=== PATIENT | female | born 1980 | race Caucasian/White ===

== ENCOUNTER → 2017-01-26 | Outpatient (CLI) | payer OTHER ==
[~2017-01-26] MED LIST: ALBU0.08 INH; AMX500 PO; AYR SALINE NAE; BND25X PO; LEVO200T28 PO; VICKS INH
== END | disposition home or self-care (01) ==
LOC: C.PAPS 10:16
PROVIDERS: ATTEND Obstetrics & Gynecology
DX: R87.610 Atypical squamous cells of undetermined significance on cytologic smear of cervix (ASC-US) (principal)

== ENCOUNTER → 2018-01-04 | Outpatient (CLI) | payer OTHER ==
[2018-01-04 18:31] LABS: BLOOD UREA NITROGEN 14 mg/dl (7-18); CALCIUM 9.1 mg/dl (8.5-10.1); CARBON DIOXIDE 29 mmol/L (21-32); CREATININE 0.86 mg/dl (0.60-1.20); GLUCOSE 92 mg/dl (70-99); POTASSIUM 4.2 mmol/L (3.5-5.1); SODIUM 137 mmol/L (136-145)
== END | disposition home or self-care (01) ==
LOC: C.LABPVFM 14:03
PROVIDERS: ATTEND Nurse Practitioner
DX: J45.909 Unspecified asthma, uncomplicated (principal); E03.9 Hypothyroidism, unspecified

== ENCOUNTER 2020-04-30 15:12 | Observation (INO) ==
[2020-04-30] MEDS ORDERED: ONDANSETRON INJ 2 MG/ML 2 ML VIAL IV STA (16:06)
--- NOTE | 2020-04-30 16:18 | Emergency Department Note ---
History of Present Illness General Chief complaint: Abdominal Pain Stated complaint: ABD PAIN, NAUSEA Time Seen by Provider: 04/30/20 15:48 History of Present Illness Maximum Pain Intensity: 5 Patient is a 40-year-old female with past medical history significant for hypothyroidism and asthma who presents to the emergency department accompanied by her mother for evaluation of mid abdominal pain with associated nausea and anorexia x5 days. Her symptoms started last . She noted discomfort and nausea. Pain is in her mid abdomen, just above her umbilicus and does not radiate. She reports feeling very nauseous, had dry heaves once, but did not truly vomit. She denies any diarrhea, bowel movements have been normal for her, but decreased secondary to the lack of oral intake. She denies any urinary symptoms. No vaginal discharge. No fever or chills. She rates her discomfort a 5/10 currently. She has not tried any medications for her symptoms, but did try sipping on monique edson and following a brat diet. She denies any sick contacts at home, no unusual food or water consumption, recent foreign or out of state travel. Patient was treated with a short course of clindamycin for a dog bite 2 months ago. She also underwent an elective in December of this yea r, which was complicated by retained products of conception which required a second D&C. She does report that she has had normal menstrual cycles since, she states her last period was 1 week ago. She denies a history of abdominal surgeries. Home Medications Home Medications Medication Instructions Recorded Confirmed Type albuterol sulfate 2 puff INHALATION Q4 PRN 01/27/20 04/30/20 History albuterol sulfate 2.5 mg INHALATION DAILY 01/27/20 04/30/20 History levothyroxine 88 mcg tablet 88 mcg PO QAM #90 tab 02/23/20 04/30/20 Rx acetaminophen [Tylenol Extra 500 mg PO Q6H PRN 04/30/20 04/30/20 History Strength] Allergies Allergy/AdvReac Type Severity Reaction Status Date / Time Bactrim Allergy Severe throat Unverified 11/04/10 16:42 swelling cephalexin Allergy Severe throat Verified 04/30/20 17:10 swelling doxycycline Allergy Severe Throat Verified 04/30/20 17:10 swelling epinephrine Allergy Severe throat Verified 04/30/20 17:10 swelling lidocaine Allergy Severe throat Verified 04/30/20 17:10 swelling morphine Allergy Severe Tachycardia Verified 04/30/20 17:10 moxifloxacin [From Avelox] Allergy Severe THROAT Verified 04/30/20 17:10 SWELLING Sulfa (Sulfonamide Allergy Severe throat Verified 04/30/20 17:10 Antibiotics) swelling sulfamethoxazole Allergy Severe throat Verified 04/30/20 17:10 swelling trimethoprim Allergy Severe throat Verified 04/30/20 17:10 swelling amoxicillin Allergy Mild Rash Verified 02/27/20 14:21 Cephalosporins Allergy Mild RASH Verified 02/27/20 14:21 Past Med/Surg History Medical History Asthma (Chronic) Fibroadenoma of right breast (Resolved) History of abnormal cervical Pap smear History of chlamydia infection Hypothyroidism (Chronic) Inconclusive mammogram Migraine with aura (Inactive) Surgical History Elective 12/2019. Now has retained products. H/O colposcopy with cervical biopsy 05/24/15 - benign H/O wisdom tooth extraction History of dilatation and curettage Family History Grandfather Myocardial infarction Calcium kidney stone Cancer Aunt Diabetes Grandmother (Maternal) Hypertension Sister Ovarian cyst Aunt No problems noted. Other Alcohol abuse Bleeding disorder Heart disease Kidney disease Denies family history of Ovarian cancer Prostate cancer Breast cancer Lung cancer Colorectal cancer Social History Preferred Language: Sinhala Communication Ability: Effective Frame Straightener Required: No Beliefs That Will Affect Care: None marital status: marital status details: Phan Casillas [phone] Current Living Situation: Family and Significant Other Current Living Situation Comment: lives with daughter, 1 dog current occupational status: employed current occupation: Massage therapist Other Information That Helps Us Care for You: No Feels Safe at Home: Yes Safety Concerns: Feels Safe At This Time Smoking Status: Never smoker Second Hand Exposure: No ; Hx Alcohol Use: No Hx Substance Use: No caffeine: Yes (coffee) Dental Care, Regularly: Yes Seatbelt Use: always Sunscreen Use: Yes Review of Systems A total of 10 systems reviewed and were otherwise negative Physical Exam Vital Signs Vital Signs - 24 hr 04/30/20 15:15 04/30/20 17:04 04/30/20 17:05 Temperature 36.9 C Temperature Source Oral Pulse Rate 77 61 61 Pulse Rate from SpO2 Sensor 62 60 Respiratory Rate 18 12 12 Respiratory Effort / Characteristics Non-Labored Respiratory Depth Normal Blood Pressure 136/80 116/70 Blood Pressure Mean 98 79 Pulse Oximetry 100 100 100 Oxygen Delivery Method Room Air Sepsis Recent Fever Within 48 Hours No Sepsis Action Taken by Nursing No Action Required 04/30/20 17:30 04/30/20 18:38 04/30/20 18:49 Temperature Temperature Source Pulse Rate 80 78 72 Pulse Rate from SpO2 Sensor 79 80 72 Respiratory Rate 21 14 17 Respiratory Effort / Characteristics Respiratory Depth Blood Pressure 115/67 115/67 Blood Pressure Mean 83 83 Pulse Oximetry 100 100 100 Oxygen Delivery Method Sepsis Recent Fever Within 48 Hours Sepsis Action Taken by Nursing 04/30/20 19:00 04/30/20 19:30 04/30/20 20:01 Temperature Temperature Source Pulse Rate 79 92 H Pulse Rate from SpO2 Sensor 80 Respiratory Rate 18 17 18 Respiratory Effort / Characteristics Respiratory Depth Blood Pressure 119/71 119/71 Blood Pressure Mean 87 89 Pulse Oximetry 99 100 98 Oxygen Delivery Method Room Air Sepsis Recent Fever Within 48 Hours Sepsis Action Taken by Nursing CONSTITUTIONAL: Patient is an uncomfortable, otherwise nontoxic appearing 40-year-old female who is awake and alert and in no acute distress. EYES: Pupils equal, round, reactive to light and accommodation. EOMs intact without nystagmus. Sclera are anicteric. ENT: Tympanic membranes intact, with normal landmarks. External canals are clear. Oral and nasopharynx are clear. Mucous membranes are moist, no lesions, tongue and gums appear normal. CARDIOVASCULAR: Regular rate and rhythm, with normal S1 and S2, no murmur or gallop or rub is heard. Peripheral pulses easily palpable. RESPIRATORY: Breath sounds equal and clear to auscultation without wheezes, rales, or rhonchi heard. Full and equal chest expansion without accessory muscle use or retractions. ABDOMEN: Bowel sounds are present. Abdomen is soft, scaphoid, nondistended. She is mildly tender to percussion through the mid abdomen, is tender to palpation in the epigastric region, and the mid abdomen just above the umbilicus, and in the right lower quadrant. There is no guarding or rebound. INTEGUMENTARY: No lesions or rash, normal skin turgor. LYMPH: No lymphadenopathy. Course Course The patient was seen and assessed as above. Old records were reviewed. She presents to the emergency department for evaluation of mid abdominal pain with associated nausea and anorexia. She does have some tenderness in the right lower quadrant on exam. IV lock was initiated and laboratory studies were collected. She was medicated with Zofran 4 mg IV for nausea. She was ordered a total of 2 L of normal saline solution for hydration, but was only administered 1, as she was not tolerating the infusion through the IV site in her left hand well. CBC with differential, CMP, lipase, serum hCG, urinalysis and urine toxicology screen were ordered. CT scan of the abdomen pelvis with IV contrast was ordered. Laboratory studies noted a normal white count 6000, no left shift, no bandemia. Electrolytes are without significant abnormality requiring correction, BUN and creatinine 6 and 0.44. Transaminases are not elevated. Lipase is within normal limits. Serum hCG is negative. Urine toxicology screen is clear, urine microscopy notes 4+ ketones, trace blood, trace leukocyte esterase and greater than 30 WBCs. She does have casts and greater than 30 epithelial cells noted, 2+ bacteria. I suspect contamination, but urine culture is pending per protocol. The patient does not have any UTI symptoms. Patient was sent for CT scan of the abdomen and pelvis with IV contrast. She tolerated this well. CT scan is concerning for a borderline dilated fluid- filled appendix measuring 7 mm without evidence for significant periappendiceal inflammatory change, possibly indicating an early acute appendicitis. There was a right renal cyst noted. No evidence for bowel obstruction, no free air. No obvious gynecologic pathology. Consultation was placed with Dr. Lara with general surgery. He assessed the patient in the emergency department. At this point he plans to watch the patient in the hospital overnight, and decide whether surgery is necessary in the morning. Please refer to his surgical consultation/H&P for further information. Administered Medications Ioversol (Optiray 320 100ml) 94 ml IV ONCE PRN PRN Reason: Interaction Checking Stop: 05/04/20 18:33 Last Admin: 04/30/20 18:35 Dose: 94 ml Documented by: [id number] Discontinued Medications Sodium Chloride (Nss 1000ml) 1,000 mls @ 999 mls/hr IV .Q1H1M [facility] Stop: 04/30/20 18:07 Last Infusion: 04/30/20 18:26 Dose: 0 mls/hr Documented by: [id number] Admin: 04/30/20 16:57 Dose: 999 mls/hr Documented by: [id number] Ondansetron HCl (Zofran) 4 mg IV NOW STA Stop: 04/30/20 16:07 Last Admin: 04/30/20 16:58 Dose: 4 mg Documented by: [id number] Medical Decision Making Differential Diagnosis Differential diagnoses entertained included UTI, pyelonephritis, renal colic, appendicitis, ovarian cyst, ovarian torsion, , ectopic , PID, tubo-ovarian abscess, shingles, hernia, colitis/enteritis, among others. Medical Records Attestation: I reviewed the patient's medical records. Home Medications Current Medication List: was personally reviewed by me Laboratory Data Attestation: I reviewed the patient's lab results. Result diagrams: 04/30/20 17:08 04/30/20 17:08 Lab Results 04/30/20 04/30/20 04/30/20 Range/Units 17:08 17:08 17:08 WBC 6.05 (4.8-10.8) K/uL RBC 4.17 L (4.2-5.4) M/uL Hgb 13.0 (12.0-16.0) g/dL Hct 39.0 (37-47) % MCV 93.5 (80-100) fL MCH 31.2 (25-34) pg MCHC 33.3 (32-36) g/dL RDW Std Deviation 46.0 (36.4-46.3) fL RDW Coeff of Kevon 13.4 (11.5-14.5) % Plt Count 384 (130-400) K/uL MPV 9.1 (7.4-10.4) fL Immature Gran % (Auto) 0.2 % Neut % (Auto) 67.7 % Lymph % (Auto) 24.1 % Tripp % (Auto) 6.8 % Eos % (Auto) 0.7 % Baso % (Auto) 0.5 % Neut # (Auto) 4.10 (1.4-6.5) K/uL Lymph # (Auto) 1.46 (1.2-3.4) K/uL Tripp # (Auto) 0.41 (0.11-0.59) K/uL Eos # (Auto) 0.04 (0-0.5) K/uL Baso # (Auto) 0.03 (0-0.2) K/uL Immature Gran # (Auto) 0.01 (0.00-0.02) K/uL Sodium 140 (136-145) mmol/L Potassium 3.4 L (3.5-5.1) mmol/L Chloride 107 (98-107) mmol/L Carbon Dioxide 26 (21-32) mmol/L Anion Gap 7.0 (3-11) BUN 6 L (7-18) mg/dl Creatinine 0.44 L (0.6-1.2) mg/dl Est Cr Clr Drug Dosing 145.3 ml/min Est GFR ( Amer) 145.3 Est GFR (Non-Af Amer) 125.4 BUN/Creatinine Ratio 13.1 (10-20) Glucose 68 L (70-99) mg/dl Calcium 8.4 L (8.5-10.1) mg/dl Total Bilirubin 0.5 (0.2-1) mg/dl AST 6 L (15-37) U/L ALT 13 (12-78) U/L Alkaline Phosphatase 44 L (45-117) U/L Total Protein 6.5 (6.4-8.2) gm/dl Albumin 3.7 (3.4-5.0) gm/dl Globulin 2.8 (2.5-4.0) gm/dl Albumin/Globulin Ratio 1.3 (0.9-2) Lipase 56 L (73-393) U/L HCG, Qual Negative (Negative) Urine Color Urine Appearance (Clear) Urine pH (4.5-7.5) Ur Specific [place] (1.000-1.030) Urine Protein (Negative) Urine Glucose (UA) (Negative) Urine Ketones (Negative) Urine Blood (Negative) Urine Nitrite (Negative) Urine Bilirubin (Negative) Urine Urobilinogen (Negative) Ur Leukocyte Esterase (Negative) Urine WBC (Auto) (0-5) /hpf Urine RBC (Auto) (0-4) /hpf U Hyaline Cast (Auto) (0-5) /lpf U Epithel Cells (Auto) (0-5) /lpf Urine Bacteria (Auto) (Negative) Urine Opiates Screen (Neg) Ur Methadone, Qual (Neg) Urine Barbiturates (Neg) Ur Phencyclidine (PCP) (Neg) U Amphetamin/Meth Scrn (Neg) MDMA (Ecstasy) Screen (Neg) U Benzodiazepines Scrn (Neg) Ur Cocaine Metabolite (Neg) U Marijuana (THC) Screen (Neg) 04/30/20 04/30/20 Range/Units Unknown Unknown WBC (4.8-10.8) K/uL RBC (4.2-5.4) M/uL Hgb (12.0-16.0) g/dL Hct (37-47) % MCV (80-100) fL MCH (25-34) pg MCHC (32-36) g/dL RDW Std Deviation (36.4-46.3) fL RDW Coeff of Kevon (11.5-14.5) % Plt Count (130-400) K/uL MPV (7.4-10.4) fL Immature Gran % (Auto) % Neut % (Auto) % Lymph % (Auto) % Tripp % (Auto) % Eos % (Auto) % Baso % (Auto) % Neut # (Auto) (1.4-6.5) K/uL Lymph # (Auto) (1.2-3.4) K/uL Tripp # (Auto) (0.11-0.59) K/uL Eos # (Auto) (0-0.5) K/uL Baso # (Auto) (0-0.2) K/uL Immature Gran # (Auto) (0.00-0.02) K/uL Sodium (136-145) mmol/L Potassium (3.5-5.1) mmol/L Chloride (98-107) mmol/L Carbon Dioxide (21-32) mmol/L Anion Gap (3-11) BUN (7-18) mg/dl Creatinine (0.6-1.2) mg/dl Est Cr Clr Drug Dosing ml/min Est GFR ( Amer) Est GFR (Non-Af Amer) BUN/Creatinine Ratio (10-20) Glucose (70-99) mg/dl Calcium (8.5-10.1) mg/dl Total Bilirubin (0.2-1) mg/dl AST (15-37) U/L ALT (12-78) U/L Alkaline Phosphatase (45-117) U/L Total Protein (6.4-8.2) gm/dl Albumin (3.4-5.0) gm/dl Globulin (2.5-4.0) gm/dl Albumin/Globulin Ratio (0.9-2) Lipase (73-393) U/L HCG, Qual (Negative) Urine Color Yellow Urine Appearance Cloudy A (Clear) Urine pH 5.0 (4.5-7.5) Ur Specific [place] 1.029 (1.000-1.030) Urine Protein Trace H (Negative) Urine Glucose (UA) Negative (Negative) Urine Ketones 4+ H (Negative) Urine Blood Trace H (Negative) Urine Nitrite Negative (Negative) Urine Bilirubin Negative (Negative) Urine Urobilinogen Negative (Negative) Ur Leukocyte Esterase Trace H (Negative) Urine WBC (Auto) >30 H (0-5) /hpf Urine RBC (Auto) 5-10 H (0-4) /hpf U Hyaline Cast (Auto) 10-30 H (0-5) /lpf U Epithel Cells (Auto) >30 H (0-5) /lpf Urine Bacteria (Auto) 2+ H (Negative) Urine Opiates Screen Neg (Neg) Ur Methadone, Qual Neg (Neg) Urine Barbiturates Neg (Neg) Ur Phencyclidine (PCP) Neg (Neg) U Amphetamin/Meth Scrn Neg (Neg) MDMA (Ecstasy) Screen Neg (Neg) U Benzodiazepines Scrn Neg (Neg) Ur Cocaine Metabolite Neg (Neg) U Marijuana (THC) Screen Neg (Neg) Imaging Data Attestation: I personally reviewed and interpreted this imaging study as follows: Radiologist's Impression: CT abd pelvis IV con only CLINICAL HISTORY: MID ABD PAIN AND NAUSEA X 5 DAYS COMPARISON STUDY: None. TECHNIQUE: The patient was scanned in a dynamic helical fashion during intravenous administration of 94 cc of Optiray 320 A dose lowering technique was utilized adhering to the principles of ALARA. CT DOSE: 383.34 mGy.cm FINDINGS: Lower chest: The heart is normal in size and configuration, without pericardial effusion. The lung bases and pleural spaces are clear. Liver: The contrast-enhanced liver is normal in size, contour, and attenuation. There is no intrahepatic biliary ductal dilatation. The hepatic veins and portal veins are patent. Gallbladder: Unremarkable. Spleen: Normal in size and attenuation. Pancreas: Unremarkable. Adrenal glands: Unremarkable. Kidneys: There is a 14 mm right renal hypodensity statistically representing a cyst. Bowel: There are no transition zones indicate bowel obstruction. There is no evidence of acute diverticulitis. There is a borderline dilated fluid-filled appendix measuring 7 mm in diameter without evidence of significant periappendiceal inflammatory change. Clinical correlation in regards the patient's symptoms is advocated. Peritoneum: There is trace free pelvic fluid, likely physiologic. Vasculature: The abdominal aorta is normal in course and caliber. Adenopathy: None. Pelvic viscera: There are bilateral ovarian follicles present. Skeletal structures: No destructive osseous lesions are seen. IMPRESSION: 1. No evidence of bowel obstruction. No evidence of free air 2. 14 mm right renal hypodensity, statistically representing a cyst 3. Borderline dilated fluid-filled appendix measuring 7 mm without evidence of significant periappendiceal inflammatory change. Clinical correlation in regards to the patient's symptoms is advocated to exclude an early acute appendicitis Blood Pressure Blood Pressure Findings: Normal blood pressure Blood Pressure Disposition: did not require urgent referral MDM Narrative See ED Course. Impression & Plan Acute appendicitis, Right lower quadrant abdominal pain Discharge Plan Visit Data Chief Complaint: Abdominal Pain Stated Complaint: ABD PAIN, NAUSEA ED Provider: Alan Lopez ED Midlevel Provider: Ten Davis Discharge Problem: Acute appendicitis, Right lower quadrant abdominal pain Patient Disposition: Being Evaluated by Surgeon Discharge Instructions Interventions: ED Discharge Assessment Last Done: 04/30/20 20:15
[2020-04-30] MEDS: SODIUM CHLORIDE 0.9% 1000ML 1,000 ML IV SCH ×2 (16:57→21:22)
[2020-04-30 17:04] LABS: Appearance Urine Cloudy (Clear); Bacteria Urine Automated 2+ (Negative); Bilirubin Urine Negative (Negative); Blood Urine Trace (Negative); Color Urine Yellow; Epithelial Cell Urine Auto >30 /lpf (0-5); Glucose Urine UA Negative (Negative); Ketones Urine 4+ (Negative); Leukocyte Esterase Urine Trace (Negative); Nitrite Urine Negative (Negative); Protein Urine Trace (Negative); Specific Gravity Urine 1.029 (1.000-1.030); Urobilinogen Urine Negative (Negative); WBC Urine Automated >30 /hpf (0-5)
[2020-04-30 17:19] LABS: Amphetamines+Metham, Urine Neg (Neg); Barbiturates, Urine Neg (Neg); Benzodiazepine, Urine Neg (Neg); Cocaine, Urine Neg (Neg); MDMA (Ecstacy), Urine Neg (Neg); Methadone, Urine Neg (Neg); Opiate, Urine Neg (Neg); Phencyclidine, Urine Neg (Neg)
[2020-04-30 17:23] LABS: Basophils # (auto) 0.03 K/uL (0-0.2); Basophils % (auto) 0.5 %; Eosinophils # (auto) 0.04 K/uL (0-0.5); Eosinophils % (auto) 0.7 %; Immature Granulocytes # (auto) 0.01 K/uL (0.00-0.02); Immature Granulocytes % (auto) 0.2 %; Lymphocytes # (auto) 1.46 K/uL (1.2-3.4); Lymphocytes % (auto) 24.1 %; Mean Corpuscular Hemoglobin 31.2 pg (25-34); Mean Corpuscular Hgb Conc 33.3 g/dL (32-36); Mean Corpuscular Volume 93.5 fL (80-100); Mean Platelet Volume 9.1 fL (7.4-10.4); Monocytes # (auto) 0.41 K/uL (0.11-0.59); Monocytes % (auto) 6.8 %; Neutrophils % (auto) 67.7 %; Platelet Count 384 K/uL (130-400); RDW Coefficient of Variation 13.4 % (11.5-14.5); Red Blood Count 4.17 M/uL (4.2-5.4); White Blood Count 6.05 K/uL (4.8-10.8)
[2020-04-30 17:36] LABS: Albumin Level 3.7 gm/dl (3.4-5.0); BUN Creatinine Ratio 13.1 (10-20); Calcium 8.4 mg/dl (8.5-10.1); Creatinine Clr Calc Pharmacy 145.3 ml/min; Est GFR (African American) 145.3; Est GFR (Non-African American) 125.4; Potassium 3.4 mmol/L (3.5-5.1)
[2020-04-30 17:39] LABS: Albumin Globulin Ratio 1.3 (0.9-2); Bilirubin,Total 0.5 mg/dl (0.2-1); Globulin 2.8 gm/dl (2.5-4.0); Total Protein 6.5 gm/dl (6.4-8.2)
[2020-04-30 17:41] LABS: Pregnancy Test, Serum Negative (Negative)
[2020-04-30] MEDS ORDERED: IOVERSOL 100ml IV PRN (18:34)
--- NOTE | 2020-04-30 18:48 | CT Scan Report ---
CT abd pelvis IV con only CLINICAL HISTORY: MID ABD PAIN AND NAUSEA X 5 DAYS COMPARISON STUDY: None. TECHNIQUE: The patient was scanned in a dynamic helical fashion during intravenous administration of 94 cc of Optiray 320 A dose lowering technique was utilized adhering to the principles of ALARA. CT DOSE: 383.34 mGy.cm FINDINGS: Lower chest: The heart is normal in size and configuration, without pericardial effusion. The lung ba ses and pleural spaces are clear. Liver: The contrast-enhanced liver is normal in size, contour, and attenuation. There is no intrahepa tic biliary ductal dilatation. The hepatic veins and portal veins are patent. Gallbladder: Unremarkable. Spleen: Normal in size and attenuation. Pancreas: Unremarkable. Adrenal glands: Unremarkable. Kidneys: There is a 14 mm right renal hypodensity statistically representing a cyst. Bowel: There are no transition zones indicate bowel obstruction. There is no evidence of acute divert iculitis. There is a borderline dilated fluid-filled appendix measuring 7 mm in diameter without evid ence of significant periappendiceal inflammatory change. Clinical correlation in regards the patient' s symptoms is advocated. Peritoneum: There is trace free pelvic fluid, likely physiologic. Vasculature: The abdominal aorta is normal in course and caliber. Adenopathy: None. Pelvic viscera: There are bilateral ovarian follicles present. Skeletal structures: No destructive osseous lesions are seen. IMPRESSION: 1. No evidence of bowel obstruction. No evidence of free air 2. 14 mm right renal hypodensity, statistically representing a cyst 3. Borderline dilated fluid-filled appendix measuring 7 mm without evidence of significant periappend iceal inflammatory change. Clinical correlation in regards to the patient's symptoms is advocated to exclude an early acute appendicitis ACT 112: Negative or not required by law. Electronically signed by: Ja Horton M.D. 04/30/2020 6:47 PM
[2020-04-30] MEDS ORDERED: ONDANSETRON INJ 2 MG/ML 2 ML VIAL IV PRN (19:40)
--- NOTE | 2020-04-30 19:50 | Surgery Consultation ---
Date of Consultation April 30, 2020 Assessment & Plan (1) Acute abdominal pain: pt is a 40 year-old female who presents to Er with 5 days history acute abdominal pain, IMP: acute abdominal pain, CT scan 7 mm appendix , no inflammation around appendix, not like acute appendicitis, but could not R/O early acute appendicitis, I recommend to admit to hospital, conservative treatment first, NPO, IV fluid, antibiotic, control pain, repeat labs in am, pt and her mom agree with the plan, will F/U Present on Admission?: Yes History of Present Illness History of Present Illness History of Present Illness General Chief complaint: Abdominal Pain Stated complaint: ABD PAIN, NAUSEA Time Seen by Provider: 04/30/20 15:48 History of Present Illness Maximum Pain Intensity: 5 Patient is a 40-year-old female with past medical history significant for hypothyroidism and asthma who presents to the emergency department accompanied by her mother for evaluation of mid abdominal pain with associated nausea and anorexia x5 days. Her symptoms started last . She noted discomfort and nausea. Pain is in her mid abdomen, just above her umbilicus and does not radiate. She reports feeling very nauseous, had dry heaves once, but did not truly vomit. She denies any diarrhea, bowel movements have been normal for her, but decreased secondary to the lack of oral intake. She denies any urinary symptoms. No vaginal discharge. No fever or chills. She rates her discomfort a 5/10 currently. She has not tried any medications for her symptoms, but did try sipping on monique edson and following a brat diet. She denies any sick contacts at home, no unusual food or water consumption, recent foreign or out of state travel. Patient was treated with a short course of clindamycin for a dog bite 2 months ago. She also underwent an elective in December of this year, which was complicated by retained products of conception which required a second D&C. She does report that she has had normal menstrual cycles since, she states her last period was 1 week ago. She denies a history of abdominal surgeries. I ( Dexter menjivar MD ) got a call for consult possible acute appendicitis, I reviewed pt's H/P, labs, CT scan with pt, and her Mom, pt has been rakesh- umbilical pain for 5 days, with nausea, no vomiting, pt denies diarrhea, last BM this morning. no fever, Home Medications Home Medications Medication Instructions Recorded Confirmed Type albuterol sulfate 2 puff INHALATION Q4 PRN 01/27/20 04/30/20 History albuterol sulfate 2.5 mg INHALATION DAILY 01/27/20 04/30/20 History levothyroxine 88 mcg tablet 88 mcg PO QAM #90 tab 02/23/20 04/30/20 Rx acetaminophen [Tylenol Extra 500 mg PO Q6H PRN 04/30/20 04/30/20 History Strength] Allergies Allergy/AdvReac Type Severity Reaction Status Date / Time Bactrim Allergy Severe throat Unverified 11/04/10 16:42 swelling cephalexin Allergy Severe throat Verified 04/30/20 17:10 swelling doxycycline Allergy Severe Throat Verified 04/30/20 17:10 swelling epinephrine Allergy Severe throat Verified 04/30/20 17:10 swelling lidocaine Allergy Severe throat Verified 04/30/20 17:10 swelling morphine Allergy Severe Tachycardia Verified 04/30/20 17:10 moxifloxacin [From Avelox] Allergy Severe THROAT Verified 04/30/20 17:10 SWELLING Sulfa (Sulfonamide Allergy Severe throat Verified 04/30/20 17:10 Antibiotics) swelling sulfamethoxazole Allergy Severe throat Verified 04/30/20 17:10 swelling trimethoprim Allergy Severe throat Verified 04/30/20 17:10 swelling amoxicillin Allergy Mild Rash Verified 02/27/20 14:21 Cephalosporins Allergy Mild RASH Verified 02/27/20 14:21 Past Med/Surg History Medical History Asthma (Chronic) Fibroadenoma of right breast (Resolved) History of abnormal cervical Pap smear History of chlamydia infection Hypothyroidism (Chronic) Inconclusive mammogram Migraine with aura (Inactive) Surgical History Elective 12/2019. Now has retained products. H/O colposcopy with cervical biopsy 05/24/15 - benign H/O wisdom tooth extraction History of dilatation and curettage Family History Grandfather Myocardial infarction Calcium kidney stone Cancer Aunt Diabetes Grandmother (Maternal) Hypertension Sister Ovarian cyst Aunt No problems noted. 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 Beliefs That Will Affect Care: None marital status: marital status details: Phan Casillas (35) [phone] Current Living Situation: Family and Significant Other Current Living Situation Comment: lives with daughter, 1 dog current occupational status: employed current occupation: Massage therapist Feels Safe at Home: Yes Smoking Status: Never smoker Second Hand Exposure: No ; Hx Alcohol Use: No Hx Substance Use: No caffeine: Yes (coffee) Dental Care, Regularly: Yes Seatbelt Use: always Sunscreen Use: Yes Review of Systems A total of 10 systems reviewed and were otherwise negative Allergies Allergy/AdvReac Type Severity Reaction Status Date / Time Bactrim Allergy Severe throat Unverified 11/04/10 16:42 swelling cephalexin Allergy Severe throat Verified 04/30/20 17:10 swelling doxycycline Allergy Severe Throat Verified 04/30/20 17:10 swelling epinephrine Allergy Severe throat Verified 04/30/20 17:10 swelling lidocaine Allergy Severe throat Verified 04/30/20 17:10 swelling morphine Allergy Severe Tachycardia Verified 04/30/20 17:10 moxifloxacin [From Avelox] Allergy Severe THROAT Verified 04/30/20 17:10 SWELLING Sulfa (Sulfonamide Allergy Severe throat Verified 04/30/20 17:10 Antibiotics) swelling sulfamethoxazole Allergy Severe throat Verified 04/30/20 17:10 swelling trimethoprim Allergy Severe throat Verified 04/30/20 17:10 swelling amoxicillin Allergy Mild Rash Verified 02/27/20 14:21 Cephalosporins Allergy Mild RASH Verified 02/27/20 14:21 Home Medications Home Medications Medication Instructions Recorded Confirmed Type albuterol sulfate 2 puff INHALATION Q4 PRN 01/27/20 04/30/20 History albuterol sulfate 2.5 mg INHALATION DAILY 01/27/20 04/30/20 History levothyroxine 88 mcg tablet 88 mcg PO QAM #90 tab 02/23/20 04/30/20 Rx acetaminophen [Tylenol Extra 500 mg PO Q6H PRN 04/30/20 04/30/20 History Strength] Patient History Medical History Asthma (Chronic) Fibroadenoma of right breast (Resolved) History of abnormal cervical Pap smear History of chlamydia infection Hypothyroidism (Chronic) Inconclusive mammogram Migraine with aura (Inactive) Surgical History Elective 12/2019. Now has retained products. H/O colposcopy with cervical biopsy 05/24/15 - benign H/O wisdom tooth extraction History of dilatation and curettage Family History Grandfather Myocardial infarction Calcium kidney stone Cancer Aunt Diabetes Grandmother (Maternal) Hypertension Sister Ovarian cyst Aunt No problems noted. 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 Beliefs That Will Affect Care: None marital status: marital status details: Phan Casillas (35) [phone] Current Living Situation: Family and Significant Other Current Living Situation Comment: lives with daughter, 1 dog current occupational status: employed current occupation: Massage therapist Feels Safe at Home: Yes Smoking Status: Never smoker Second Hand Exposure: No ; Hx Alcohol Use: No Hx Substance Use: No caffeine: Yes (coffee) Dental Care, Regularly: Yes Seatbelt Use: always Sunscreen Use: Yes Review of Systems Review of Systems: All systems reviewed & are unremarkable except as noted in HPI & below Constitutional: as per Subjective / HPI Eyes: as per Subjective / HPI Ear, Nose, Mouth, Throat: as per Subjective / HPI Respiratory: as per Subjective / HPI asthma Cardiovascular: as per Subjective / HPI Gastrointestinal: as per Subjective / HPI Genitourinary: as per Subjective / HPI Musculoskeletal: as per Subjective / HPI Integumentary: as per Subjective / HPI Neurologic: as per Subjective / HPI Psychiatric: as per Subjective / HPI Endocrine: as per Subjective / HPI hypothyroidism Hematologic / Lymphatic: as per Subjective / HPI Allergy / Immunological: as per Subjective / HPI Physical Exam Constitutional: WD/WN, vitals as above well developed and well nourished Eyes: PERRL, conjunctivae normal, anicteric sclerae ENMT: external ear and nose normal, oropharynx normal Neck: trachea midline, no thyromegaly Respiratory: normal respiratory effort, lungs clear to auscultation Cardiovascular: RRR, no murmur, no edema Rate/Rhythm: regular rate and regular rhythm Heart Sounds: normal S1 and normal S2 Gastrointestinal (Abdomen): mild tenderness rakesh-umbilical area, no rebound pain, no distend, no rigid, no guarding, BS + Musculoskeletal: no cyanosis or clubbing, extremities motor strength 5/5 Skin: no rashes, warm and dry Neurologic: patellar DTR's 2+ bilat, sensation intact Psychiatric: Orientation: alert and oriented x 3 Results & Data Vital Signs (Past 12 Hours) Vital Signs Temp Pulse Resp BP Pulse Ox 04/30/20 18:38 78 14 115/67 100 04/30/20 17:30 80 21 100 04/30/20 17:05 61 12 100 04/30/20 17:04 61 12 116/70 100 04/30/20 15:15 36.9 C 77 18 136/80 100 Laboratory Results Abnormal lab results 04/30/20 04/30/20 04/30/20 Range/Units 17:08 17:08 Unknown RBC 4.17 L (4.2-5.4) M/uL Potassium 3.4 L (3.5-5.1) mmol/L BUN 6 L (7-18) mg/dl Creatinine 0.44 L (0.6-1.2) mg/dl Glucose 68 L (70-99) mg/dl Calcium 8.4 L (8.5-10.1) mg/dl AST 6 L (15-37) U/L Alkaline Phosphatase 44 L (45-117) U/L Lipase 56 L (73-393) U/L Urine Appearance Cloudy A (Clear) Urine Protein Trace H (Negative) Urine Ketones 4+ H (Negative) Urine Blood Trace H (Negative) Ur Leukocyte Esterase Trace H (Negative) Urine WBC (Auto) >30 H (0-5) /hpf Urine RBC (Auto) 5-10 H (0-4) /hpf U Hyaline Cast (Auto) 10-30 H (0-5) /lpf U Epithel Cells (Auto) >30 H (0-5) /lpf Urine Bacteria (Auto) 2+ H (Negative) Diagnostic Findings CT abd pelvis IV con only CLINICAL HISTORY: MID ABD PAIN AND NAUSEA X 5 DAYS COMPARISON STUDY: None. TECHNIQUE: The patient was scanned in a dynamic helical fashion during intravenous administration of 94 cc of Optiray 320 A dose lowering technique was utilized adhering to the principles of ALARA. CT DOSE: 383.34 mGy.cm FINDINGS: Lower chest: The heart is normal in size and configuration, without pericardial effusion. The lung bases and pleural spaces are clear. Liver: The contrast-enhanced liver is normal in size, contour, and attenuation. There is no intrahepatic biliary ductal dilatation. The hepatic veins and portal veins are patent. Gallbladder: Unremarkable. Spleen: Normal in size and attenuation. Pancreas: Unremarkable. Adrenal glands: Unremarkable. Kidneys: There is a 14 mm right renal hypodensity statistically representing a cyst. Bowel: There are no transition zones indicate bowel obstruction. There is no evidence of acute diverticulitis. There is a borderline dilated fluid-filled appendix measuring 7 mm in diameter without evidence of significant periappendiceal inflammatory change. Clinical correlation in regards the patient's symptoms is advocated. Peritoneum: There is trace free pelvic fluid, likely physiologic. Vasculature: The abdominal aorta is normal in course and caliber. Adenopathy: None. Pelvic viscera: There are bilateral ovarian follicles present. Skeletal structures: No destructive osseous lesions are seen. IMPRESSION: 1. No evidence of bowel obstruction. No evidence of free air 2. 14 mm right renal hypodensity, statistically representing a cyst 3. Borderline dilated fluid-filled appendix measuring 7 mm without evidence of significant periappendiceal inflammatory change. Clinical correlation in regards to the patient's symptoms is advocated to exclude an early acute appendicitis
[2020-04-30] MEDS ORDERED: ALBUTEROL HFA 8 GM INHALER INH PRN (20:44)
[2020-04-30] MEDS ORDERED: ACETAMINOPHEN 500 MG TAB PO PRN (20:44)
[2020-04-30] MEDS ORDERED: CIPROFLOXACIN / D5W 400 MG/200 ML BAG IV SCH (20:44)
[2020-04-30 21:06] LABS: Basophils # (auto) 0.04 K/uL (0-0.2); Basophils % (auto) 0.5 %; Eosinophils # (auto) 0.04 K/uL (0-0.5); Eosinophils % (auto) 0.5 %; Hematocrit (blood only) 40.9 % (37-47); Hemoglobin 13.2 g/dL (12.0-16.0); Immature Granulocytes # (auto) 0.01 K/uL (0.00-0.02); Immature Granulocytes % (auto) 0.1 %; Lymphocytes # (auto) 1.88 K/uL (1.2-3.4); Lymphocytes % (auto) 25.5 %; Mean Corpuscular Hemoglobin 30.8 pg (25-34); Mean Corpuscular Hgb Conc 32.3 g/dL (32-36); Mean Corpuscular Volume 95.6 fL (80-100); Monocytes # (auto) 0.64 K/uL (0.11-0.59); Monocytes % (auto) 8.7 %; Neutrophils # (auto) 4.76 K/uL (1.4-6.5); Neutrophils % (auto) 64.7 %; Platelet Count 400 K/uL (130-400); RDW Coefficient of Variation 13.4 % (11.5-14.5); RDW Standard Deviation 46.5 fL (36.4-46.3); Red Blood Count 4.28 M/uL (4.2-5.4); White Blood Count 7.37 K/uL (4.8-10.8)
[2020-04-30] MEDS: D5W AND 1/2NSS + 20MEQ KCL 20 MEQ/1,000 ML BAG IV SCH (21:22)
[2020-04-30] MEDS: metroNIDAZOLE 500 MG/100 ML BAG IV SCH (21:22)
[2020-04-30] MEDS ORDERED: VANCOMYCIN CONSULT ACTIVE PRN (21:30)
[2020-04-30 22:01] LABS: Appearance Urine Clear (Clear); Bilirubin Urine Negative (Negative); Blood Urine Negative (Negative); Color Urine Yellow; Glucose Urine UA Negative (Negative); Ketones Urine 4+ (Negative); Leukocyte Esterase Urine Negative (Negative); Nitrite Urine Negative (Negative); Protein Urine Negative (Negative); Specific Gravity Urine > 1.045 (1.000-1.030); Urobilinogen Urine Negative (Negative)
--- NOTE | 2020-04-30 22:09 | Pharmacy Report ---
Pharmacy Abx Dose Short Note - Date of Service April 30, 2020 - Assessment & Plan Assessment 40 year old F receiving vancomycin/Flagyl for treatment of intraabdominal infection/possible UTI. Day # 1 of antimicrobial therapy. Plan Vancomycin * Estimated PK Parameters: Vd 0.7 L/kg, Phan 0.1 hr-1, t1/2 6.93 hr * Loading dose: 1500 mg (25 mg/kg) * Maintenance dose: 1000 mg IV (16.6 mg/kg) every 8 hours * Goal trough level for UTI/intraabdominal : ~15 mcg/mL * did not order trough yet since patient may be leaving tomorrow morning. Pharmacy will continue to follow and will adjust dose/frequency as necessary. Thank you.
[2020-04-30] MEDS ORDERED: VANCOMYCIN HCL 1,500 MG in SODIUM CHLORIDE 0.9% 500 ML IV ONE (23:00)
[2020-05-01 05:04] LABS: Basophils # (auto) 0.03 K/uL (0-0.2); Basophils % (auto) 0.5 %; Eosinophils # (auto) 0.08 K/uL (0-0.5); Eosinophils % (auto) 1.3 %; Hematocrit (blood only) 36.7 % (37-47); Immature Granulocytes # (auto) 0.01 K/uL (0.00-0.02); Immature Granulocytes % (auto) 0.2 %; Lymphocytes # (auto) 1.72 K/uL (1.2-3.4); Lymphocytes % (auto) 28.6 %; Mean Corpuscular Hemoglobin 31.4 pg (25-34); Mean Corpuscular Hgb Conc 32.7 g/dL (32-36); Mean Corpuscular Volume 96.1 fL (80-100); Mean Platelet Volume 9.1 fL (7.4-10.4); Monocytes # (auto) 0.59 K/uL (0.11-0.59); Monocytes % (auto) 9.8 %; Neutrophils # (auto) 3.58 K/uL (1.4-6.5); Neutrophils % (auto) 59.6 %; Platelet Count 350 K/uL (130-400); RDW Coefficient of Variation 13.5 % (11.5-14.5); RDW Standard Deviation 47.3 fL (36.4-46.3); Red Blood Count 3.82 M/uL (4.2-5.4); White Blood Count 6.01 K/uL (4.8-10.8)
[2020-05-01 05:23] LABS: Creatinine Clr Calc Pharmacy 142.1 ml/min; Est GFR (African American) 144.2; Est GFR (Non-African American) 124.5; Potassium 3.7 mmol/L (3.5-5.1)
[2020-05-01 05:26] LABS: Albumin Globulin Ratio 1.2 (0.9-2); Bilirubin,Total 0.6 mg/dl (0.2-1); Globulin 2.6 gm/dl (2.5-4.0); Total Protein 5.6 gm/dl (6.4-8.2)
[2020-05-01] MEDS: metroNIDAZOLE 500 MG/100 ML BAG IV SCH ×3 (05:56→22:25)
[2020-05-01] MEDS: LEVOTHYROXINE SODIUM 88 MCG TABLET PO SCH ×2 (05:57→09:54)
[2020-05-01] MEDS: ALBUTEROL 0.083% NEBU SOLN 3 ML VIAL INH SCH (07:22)
[2020-05-01] MEDS: D5W AND 1/2NSS + 20MEQ KCL 20 MEQ/1,000 ML BAG IV SCH ×2 (08:46→18:39)
[2020-05-01] MEDS: VANCOMYCIN HCL 1,000 MG in SODIUM CHLORIDE 0.9% 250 ML IV SCH ×3 (08:46→23:33)
--- NOTE | 2020-05-01 09:32 | Surgery Progress Note ---
Date of Service pt feels much better, no abdominal pain, no nausea, no vomiting, no fever, normal WBC, May 01, 2020 Assessment & Plan (1) Acute abdominal pain: pt is a 40 year-old female who presents to Er with 5 days history acute abdominal pain, IMP: acute abdominal pain, CT scan 7 mm appendix , no inflammation around appendix, not like acute appendicitis, but could not R/O early acute appendicitis, I recommend to admit to hospital, conservative treatment first, NPO, IV fluid, antibiotic, control pain, repeat labs in am, pt and her mom agree with the plan, will F/U 05/01/2020 9:31am doing fine, no abdominal pain, full liquid diet, possible D/C home today if she tolerated diet, Review of Systems Constitutional: as per Subjective / HPI Eyes: as per Subjective / HPI Ear, Nose, Mouth, Throat: as per Subjective / HPI Respiratory: as per Subjective / HPI asthma Cardiovascular: as per Subjective / HPI Gastrointestinal: as per Subjective / HPI Genitourinary: as per Subjective / HPI Musculoskeletal: as per Subjective / HPI Integumentary: as per Subjective / HPI Neurologic: as per Subjective / HPI Psychiatric: as per Subjective / HPI Endocrine: as per Subjective / HPI hypothyroidism Hematologic / Lymphatic: as per Subjective / HPI Allergy / Immunological: as per Subjective / HPI Physical Exam Constitutional: WD/WN, vitals as above well developed and well nourished Eyes: PERRL, conjunctivae normal, anicteric sclerae ENMT: external ear and nose normal, oropharynx normal Neck: trachea midline, no thyromegaly Respiratory: normal respiratory effort, lungs clear to auscultation Cardiovascular: RRR, no murmur, no edema Rate/Rhythm: regular rate and regular rhythm Heart Sounds: normal S1 and normal S2 Gastrointestinal (Abdomen): normal bowel sounds, soft, nontender, no hepatosplenomegaly soft, NT, ND, BS + Musculoskeletal: no cyanosis or clubbing, extremities motor strength 5/5 Skin: no rashes, warm and dry Neurologic: patellar DTR's 2+ bilat, sensation intact Psychiatric: Orientation: alert and oriented x 3 Results & Data Vital Signs (Past 12 Hours) Vital Signs Temp Pulse Resp BP Pulse Ox 05/01/20 07:22 88 18 99 05/01/20 07:08 36.7 C 66 16 103/64 100 04/30/20 23:04 36.8 C 82 16 109/64 98 Laboratory Results Abnormal lab results 04/30/20 04/30/20 04/30/20 Range/Units 17:08 17:08 20:54 RBC 4.17 L (4.2-5.4) M/uL Hct (37-47) % RDW Std Deviation 46.5 H (36.4-46.3) fL [place] # (Auto) 0.64 H (0.11-0.59) K/uL Potassium 3.4 L (3.5-5.1) mmol/L Chloride (98-107) mmol/L BUN 6 L (7-18) mg/dl Creatinine 0.44 L (0.6-1.2) mg/dl Glucose 68 L (70-99) mg/dl Calcium 8.4 L (8.5-10.1) mg/dl AST 6 L (15-37) U/L ALT (12-78) U/L Alkaline Phosphatase 44 L (45-117) U/L Total Protein (6.4-8.2) gm/dl Albumin (3.4-5.0) gm/dl Lipase 56 L (73-393) U/L Urine Appearance (Clear) Ur Specific [place] (1.000-1.030) Urine Protein (Negative) Urine Ketones (Negative) Urine Blood (Negative) Ur Leukocyte Esterase (Negative) Urine WBC (Auto) (0-5) /hpf Urine RBC (Auto) (0-4) /hpf U Hyaline Cast (Auto) (0-5) /lpf U Epithel Cells (Auto) (0-5) /lpf Urine Bacteria (Auto) (Negative) 04/30/20 04/30/20 05/01/20 Range/Units 21:10 Unknown 04:42 RBC 3.82 L (4.2-5.4) M/uL Hct 36.7 L (37-47) % RDW Std Deviation 47.3 H (36.4-46.3) fL [place] # (Auto) (0.11-0.59) K/uL Potassium (3.5-5.1) mmol/L Chloride (98-107) mmol/L BUN (7-18) mg/dl Creatinine (0.6-1.2) mg/dl Glucose (70-99) mg/dl Calcium (8.5-10.1) mg/dl AST (15-37) U/L ALT (12-78) U/L Alkaline Phosphatase (45-117) U/L Total Protein (6.4-8.2) gm/dl Albumin (3.4-5.0) gm/dl Lipase (73-393) U/L Urine Appearance Cloudy A (Clear) Ur Specific [place] > 1.045 H (1.000-1.030) Urine Protein Trace H (Negative) Urine Ketones 4+ H 4+ H (Negative) Urine Blood Trace H (Negative) Ur Leukocyte Esterase Trace H (Negative) Urine WBC (Auto) >30 H (0-5) /hpf Urine RBC (Auto) 5-10 H (0-4) /hpf U Hyaline Cast (Auto) 10-30 H (0-5) /lpf U Epithel Cells (Auto) >30 H (0-5) /lpf Urine Bacteria (Auto) 2+ H (Negative) 05/01/20 Range/Units 04:42 RBC (4.2-5.4) M/uL Hct (37-47) % RDW Std Deviation (36.4-46.3) fL [place] # (Auto) (0.11-0.59) K/uL Potassium (3.5-5.1) mmol/L Chloride 113 H (98-107) mmol/L BUN 5 L (7-18) mg/dl Creatinine 0.45 L (0.6-1.2) mg/dl Glucose (70-99) mg/dl Calcium 8.0 L (8.5-10.1) mg/dl AST 6 L (15-37) U/L ALT 11 L (12-78) U/L Alkaline Phosphatase 40 L (45-117) U/L Total Protein 5.6 L (6.4-8.2) gm/dl Albumin 3.0 L (3.4-5.0) gm/dl Lipase (73-393) U/L Urine Appearance (Clear) Ur Specific [place] (1.000-1.030) Urine Protein (Negative) Urine Ketones (Negative) Urine Blood (Negative) Ur Leukocyte Esterase (Negative) Urine WBC (Auto) (0-5) /hpf Urine RBC (Auto) (0-4) /hpf U Hyaline Cast (Auto) (0-5) /lpf U Epithel Cells (Auto) (0-5) /lpf Urine Bacteria (Auto) (Negative)
--- NOTE | 2020-05-01 16:50 | Surgery Progress Note ---
Date of Service pt is still feels some right side abdominal pain, no nausea, no vomiting, no fever, she tolerated diet, May 01, 2020 Assessment & Plan (1) Acute abdominal pain: pt is a 40 year-old female who presents to Er with 5 days history acute abdominal pain, IMP: acute abdominal pain, CT scan 7 mm appendix , no inflammation around appendix, not like acute appendicitis, but could not R/O early acute appendicitis, I recommend to admit to hospital, conservative treatment first, NPO, IV fluid, antibiotic, control pain, repeat labs in am, pt and her mom agree with the plan, will F/U 05/01/2020 9:31am doing fine, no abdominal pain, full liquid diet, possible D/C home today if she tolerated diet, 05/01/2020 4:49PM U/S study gallbladder and appendix, to R/O gallbladder disease and appendicitis, pt agrees with the plan, will F/U Review of Systems Constitutional: as per Subjective / HPI Eyes: as per Subjective / HPI Ear, Nose, Mouth, Throat: as per Subjective / HPI Respiratory: as per Subjective / HPI asthma Cardiovascular: as per Subjective / HPI Gastrointestinal: as per Subjective / HPI Genitourinary: as per Subjective / HPI Musculoskeletal: as per Subjective / HPI Integumentary: as per Subjective / HPI Neurologic: as per Subjective / HPI Psychiatric: as per Subjective / HPI Endocrine: as per Subjective / HPI hypothyroidism Hematologic / Lymphatic: as per Subjective / HPI Allergy / Immunological: as per Subjective / HPI Physical Exam Constitutional: WD/WN, vitals as above well developed and well nourished Eyes: PERRL, conjunctivae normal, anicteric sclerae ENMT: external ear and nose normal, oropharynx normal Neck: trachea midline, no thyromegaly Respiratory: normal respiratory effort, lungs clear to auscultation Cardiovascular: RRR, no murmur, no edema Rate/Rhythm: regular rate and regular rhythm Heart Sounds: normal S1 and normal S2 Gastrointestinal (Abdomen): normal bowel sounds, soft, nontender, no hepatosplenomegaly soft, mild tenderness at RUq, no rebound pain, BS +, no distend Musculoskeletal: no cyanosis or clubbing, extremities motor strength 5/5 Skin: no rashes, warm and dry Neurologic: patellar DTR's 2+ bilat, sensation intact Psychiatric: Orientation: alert and oriented x 3 Results & Data Vital Signs (Past 12 Hours) Vital Signs Temp Pulse Resp BP Pulse Ox 05/01/20 15:17 36.8 C 71 18 107/71 99 05/01/20 07:22 88 18 99 05/01/20 07:08 36.7 C 66 16 103/64 100
--- NOTE | 2020-05-01 18:34 | Ultrasound Report ---
US appendix HISTORY: Flank pain R sided abd pain COMPARISON: None. FINDINGS: Transabdominal scanning of the right lower quadrant was performed. The appendix was not identified. T here are no fluid collections or masses within the right lower quadrant. Possible 6 mm tubular struct ure right lower quadrant this is not confirmed to be the appendix IMPRESSION: The appendix was not identified with certainty.. ACT 112: Negative or not required by law. The above report was generated using voice recognition software. It may contain grammatical, syntax or spelling errors. Electronically signed by: Marques Sim M.D. 05/01/2020 6:33 PM
--- NOTE | 2020-05-01 18:35 | Ultrasound Report ---
US gallbladder HISTORY: Flank pain Right sided abdominal pain COMPARISON: None. FINDINGS: Normal gallbladder. Common bile duct 2 mm. Liver is uniform throughout. Pancreas and right kidney are unremarkable. Small upper pole 1 cm right renal cyst IMPRESSION: Small right renal cyst. Otherwise negative study. ACT 112: Negative or not required by law. The above report was generated using voice recognition software. It may contain grammatical, syntax or spelling errors. Electronically signed by: Marques Sim M.D. 05/01/2020 6:34 PM
[2020-05-01] MEDS: FAMOTIDINE 10 MG TABLET PO ONE ×2 (18:38→18:39)
[2020-05-02] MEDS: D5W AND 1/2NSS + 20MEQ KCL 20 MEQ/1,000 ML BAG IV SCH ×2 (03:48→13:35)
[2020-05-02] MEDS: metroNIDAZOLE 500 MG/100 ML BAG IV SCH ×2 (05:37→13:35)
[2020-05-02] MEDS: ALBUTEROL 0.083% NEBU SOLN 3 ML VIAL INH SCH (06:58)
[2020-05-02] MEDS ORDERED: VANCOMYCIN TROUGH ONE (07:30)
[2020-05-02 07:36] LABS: Basophils # (auto) 0.02 K/uL (0-0.2); Basophils % (auto) 0.4 %; Eosinophils # (auto) 0.11 K/uL (0-0.5); Eosinophils % (auto) 2.4 %; Hematocrit (blood only) 38.3 % (37-47); Hemoglobin 12.5 g/dL (12.0-16.0); Lymphocytes # (auto) 1.41 K/uL (1.2-3.4); Lymphocytes % (auto) 30.9 %; Mean Corpuscular Hemoglobin 30.9 pg (25-34); Mean Corpuscular Hgb Conc 32.6 g/dL (32-36); Mean Corpuscular Volume 94.6 fL (80-100); Mean Platelet Volume 9.1 fL (7.4-10.4); Monocytes # (auto) 0.49 K/uL (0.11-0.59); Monocytes % (auto) 10.7 %; Neutrophils # (auto) 2.53 K/uL (1.4-6.5); Neutrophils % (auto) 55.6 %; Platelet Count 356 K/uL (130-400); RDW Coefficient of Variation 13.5 % (11.5-14.5); RDW Standard Deviation 46.8 fL (36.4-46.3); Red Blood Count 4.05 M/uL (4.2-5.4); White Blood Count 4.56 K/uL (4.8-10.8)
[2020-05-02 08:04] LABS: Alanine Aminotransferase 13 U/L (12-78); Albumin Level 3.4 gm/dl (3.4-5.0); Aspartate Aminotransferase < 3 U/L (15-37); BUN Creatinine Ratio 3.9 (10-20); Blood Urea Nitrogen 2 mg/dl (7-18); Calcium 8.7 mg/dl (8.5-10.1); Carbon Dioxide 26 mmol/L (21-32); Chloride 111 mmol/L (98-107); Est GFR (African American) 142.2; Est GFR (Non-African American) 122.7; Glucose 100 mg/dl (70-99); Potassium 3.5 mmol/L (3.5-5.1); Sodium 142 mmol/L (136-145)
[2020-05-02 08:07] LABS: Albumin Globulin Ratio 1.4 (0.9-2); Alkaline Phosphatase 42 U/L (45-117); Bilirubin,Total 0.5 mg/dl (0.2-1); Globulin 2.5 gm/dl (2.5-4.0); Total Protein 5.9 gm/dl (6.4-8.2)
[2020-05-02] MEDS: VANCOMYCIN HCL 1,000 MG in SODIUM CHLORIDE 0.9% 250 ML IV SCH (08:41)
--- NOTE | 2020-05-02 11:15 | Surgery Progress Note ---
Date of Service May 02, 2020 Assessment & Plan (1) Acute abdominal pain: abdominal pain now resolved today no nausea or vomiting no leukocytosis again, afebrile US of gallbladder unremarkable, US of appendix without clear visualization of appendix but no fluid collections in RLQ. Plan: Plan for discharge home today Advised to advance diet slowly at home, rest today, increase activity as tolerated. work note given , return to work Thursday Dr. Lara was present during my examination and agrees with above. Subjective feeling good this am no pain no nausea or vomiting no fevers urinating without difficulty Physical Exam Constitutional: WD/WN, vitals as above no acute distress and not ill appearing Gastrointestinal (Abdomen): Inspection/Auscultation: abdomen normal to inspection; abdomen not distended Percussion/Palpation: abdomen soft; abdomen nontender, no guarding and abdomen not rigid Skin: no rashes, warm and dry Psychiatric: A+Ox3, euthymic affect Results & Data Vital Signs (Past 12 Hours) Vital Signs Temp Pulse Resp BP Pulse Ox 05/02/20 07:14 36.7 C 58 L 16 108/65 99 05/02/20 07:00 91 H 16 97 Laboratory Results 05/02/20 05/02/20 05/02/20 Range/Units 07:23 07:23 07:23 WBC 4.56 L (4.8-10.8) K/uL RBC 4.05 L (4.2-5.4) M/uL Hgb 12.5 (12.0-16.0) g/dL Hct 38.3 (37-47) % MCV 94.6 (80-100) fL MCH 30.9 (25-34) pg MCHC 32.6 (32-36) g/dL RDW Std Deviation 46.8 H (36.4-46.3) fL RDW Coeff of Kevon 13.5 (11.5-14.5) % Plt Count 356 (130-400) K/uL MPV 9.1 (7.4-10.4) fL Immature Gran % (Auto) 0.0 % Neut % (Auto) 55.6 % Lymph % (Auto) 30.9 % Millard % (Auto) 10.7 % Eos % (Auto) 2.4 % Baso % (Auto) 0.4 % Neut # (Auto) 2.53 (1.4-6.5) K/uL Lymph # (Auto) 1.41 (1.2-3.4) K/uL Millard # (Auto) 0.49 (0.11-0.59) K/uL Eos # (Auto) 0.11 (0-0.5) K/uL Baso # (Auto) 0.02 (0-0.2) K/uL Immature Gran # (Auto) 0.00 (0.00-0.02) K/uL Sodium 142 (136-145) mmol/L Potassium 3.5 (3.5-5.1) mmol/L Chloride 111 H (98-107) mmol/L Carbon Dioxide 26 (21-32) mmol/L Anion Gap 5.0 (3-11) BUN 2 L (7-18) mg/dl Creatinine 0.47 L (0.6-1.2) mg/dl Est Cr Clr Drug Dosing 136.0 ml/min Est GFR ( Amer) 142.2 Est GFR (Non-Af Amer) 122.7 BUN/Creatinine Ratio 3.9 L (10-20) Glucose 100 H (70-99) mg/dl Calcium 8.7 (8.5-10.1) mg/dl Total Bilirubin 0.5 (0.2-1) mg/dl AST < 3 L (15-37) U/L ALT 13 (12-78) U/L Alkaline Phosphatase 42 L (45-117) U/L Total Protein 5.9 L (6.4-8.2) gm/dl Albumin 3.4 (3.4-5.0) gm/dl Globulin 2.5 (2.5-4.0) gm/dl Albumin/Globulin Ratio 1.4 (0.9-2) Vancomycin Trough 14.0 (See Comment) mcg/ml Diagnostic Findings US gallbladder HISTORY: Flank pain Right sided abdominal pain COMPARISON: None. FINDINGS: Normal gallbladder. Common bile duct 2 mm. Liver is uniform throughout. Pancreas and right kidney are unremarkable. Small upper pole 1 cm right renal cyst IMPRESSION: Small right renal cyst. Otherwise negative study. US appendix HISTORY: Flank pain R sided abd pain COMPARISON: None. FINDINGS: Transabdominal scanning of the right lower quadrant was performed. The appendix was not identified. There are no fluid collections or masses within the right lower quadrant. Possible 6 mm tubular structure right lower quadrant this is not confirmed to be the appendix IMPRESSION: The appendix was not identified with certainty..
--- NOTE | 2020-05-03 11:58 | Discharge Summary ---
Date of Service May 03, 2020 Admission HPI Per Admitting Provider I ( Dexter menjivar MD ) got a call for consult possible acute appendicitis, I reviewed pt's H/P, labs, CT scan with pt, and her Mom, pt has been rakesh- umbilical pain for 5 days, with nausea, no vomiting, pt denies diarrhea, last BM this morning. no fever, Principal Diagnosis Abdominal pain mildly dialted appendix at 7 mm Discharge Data Allergies Allergy/AdvReac Type Severity Reaction Status Date / Time Bactrim Allergy Severe throat Unverified 11/04/10 16:42 swelling cephalexin Allergy Severe throat Verified 04/30/20 17:10 swelling doxycycline Allergy Severe Throat Verified 04/30/20 17:10 swelling epinephrine Allergy Severe throat Verified 04/30/20 17:10 swelling lidocaine Allergy Severe throat Verified 04/30/20 17:10 swelling morphine Allergy Severe Tachycardia Verified 04/30/20 17:10 moxifloxacin [From Avelox] Allergy Severe THROAT Verified 04/30/20 17:10 SWELLING Sulfa (Sulfonamide Allergy Severe throat Verified 04/30/20 17:10 Antibiotics) swelling sulfamethoxazole Allergy Severe throat Verified 04/30/20 17:10 swelling trimethoprim Allergy Severe throat Verified 04/30/20 17:10 swelling amoxicillin Allergy Mild Rash Verified 02/27/20 14:21 Cephalosporins Allergy Mild RASH Verified 02/27/20 14:21 Consultations 04/30/20 19:41 ED Decision to Admit Stat Ordered Studies 04/30/20 16:07 CT abd pelvis IV con only Stat 05/01/20 16:48 US appendix Routine 05/01/20 16:51 US gallbladder Routine Hospital Course (1) Acute abdominal pain: Patient admitted to hospital for observation given abdominal pain and mildly dilated appendix. She was started on IV flagyl and vancomycin due to her multiple antibiotic allergies. Urine culture was pending from ED. Labs were repeated on HD # 1 which again showed no leukocytosis. She was afebrile. Diet advanced to full liquids for lunch and if still felt well she was going to be dsicharged home. She was evaluated in early evening on HD # 1 and had burning RUQ/Right mid abdominal pain with nausea prior to full liquids. Ultrasound of appendix and gallbladder were ordered. Repeat am labs were ordered. HD # 2, vitals stable, no leukocytosis, resoluation of her abdominal pain and nausea. Diet was advanced to regular diet and she was discharged home. Total Time Total Time Spent Total Time Spent (In Minutes): 20 Total Time Includes: Examination of the Patient, Discharge Planning and Medication Reconciliation Discharge Plan Discharge Items Patient Disposition: Home - Self-Care Reason For Visit: ACUTE ABDOMINAL PAIN Discharge Diagnosis: same Activity: As commented below Lifting: Gradually increase as tolerated Bathing: No limitations Sexual Activity: When tolerated Exercise/Sports: None and Rest today Driving/Machine Use: Resume 1 day after discharge Non-emergency contact: Primary Care Provider Call non-emergency contact if: you have any medication questions, your symptoms worsen, your pain is not controlled and you have a fever Follow-up/Referrals: Cherie Best MD [Primary Care Provider] - Diet: Regular Addtl Attending Provider Instructions: None Pending Studies at Discharge: Yes Studies:: urine culture Stand-Alone Forms: [email or web address], Work/School Release (Inpt), Smoking Cessation Medications and DC Order Prescriptions: Continued levothyroxine 88 mcg tablet 88 mcg PO QAM Qty: 90 RF: 1 albuterol sulfate 90 mcg/actuation Hfa Aerosol Inhaler 2 puff INHALATION Q4 PRN (Reason: SHORT OF BREATH) RF: 0 albuterol sulfate 2.5 mg /3 mL (0.083 %) solution for nebulization 2.5 mg inhalation DAILY RF: 0 acetaminophen [Tylenol Extra Strength] 500 mg Tablet 500 mg PO Q6H PRN (Reason: Pain) RF: 0 Discharge Orders: Discharge Order (Routine); Ordered 05/02/20 Ordered By: Ofelia Lopez Admission Data Admit Date/Time: 04/30/20 19:40 Attending Provider: Dexter Menjivar Admit Provider: Dexter Menjivar Primary Care Provider: Cherie Best Other Providers: Dexter Menjivar Other Interventions: Discharge Summary Assessment (RN) Last Done: 05/02/20 11:24 DC Date/Time DO NOT enter until pt leaves facility: 05/02/20 15:18
== END 2020-05-02 15:18 | disposition home or self-care (01) ==
LOC: 3W 15:12 → ED 15:12 → 3W 20:15